=== PATIENT | female | born 1955 | race Two or more races ===

== ENCOUNTER 2024-09-03 12:19 | Inpatient (IN) | payer BC, OTHER ==
[2024-09-03] VITALS (7 sets, daily range): BP systolic 125–142; BP diastolic 66–83; PULSE 59–85; RESP 12–18; TEMP 97.3–99; O2SAT 97–98
[~2024-09-03] VITALS: Ht 165.1 cm; Wt 74.1 kg
[~2024-09-03 12:19] MED LIST: ALEN70TA74 PO; FLUT1AER3 INH; LEVO100T8 PO
[2024-09-03] MEDS ORDERED: NITROGLYCERIN 0.4 MG SL TAB SL PRN (12:30)
--- NOTE | 2024-09-03 12:33 | ED.PDOC ---
HPI Comments 69 year old female presents to the ED via EMS with a chief complaint of STEMI onset today (09/03/24). Per EMS, patient went to urgent care due to bilateral arm pain, jaw pain, generalized weakness. Urgent care shay rossi EKG, was abnormal, 911 was called. Upon EMS arrival, EKG read STEMI for them, gave patient Aspirin in route. Upon ED arrival, EKG was repeated, code Stemi was activated. Denies any PMHx as well as chest pain, nausea, vomiting, diarrhea, headache, dizziness, shortness of breath, fever, chills. No other symptoms or modifying factors present at this time. Chief Complaint: STEMI Time Seen by MD: 12:20 Reviewed Notes: Medications, Allergies Allergies: Coded Allergies: NO KNOWN ALLERGIES (Unverified , 09/03/24) Information Source: Patient, Emergency Med Personnel Mode of Arrival: EMS Severity: Moderate Timing: Hours Duration: Since onset Prehospital treatment: 12 Lead EKG, Other (aspirin) Radiation: Jaw, Arm (R), Arm (L) Onset: At Rest Past Medical History PAST MEDICAL HISTORY: Denies Surgical History: Denies all surgeries SLOTS MANAGER History: No Pertinent SLOTS MANAGER History Family History Family History: Reviewed,noncontributory to illness, No family hx of Cancer, No family hx of DM, No family hx of Heart janet, No family hx of HTN, No family hx ofKidney janet, No family hx of Liver janet, No family hx of Lung janet, No family hx of Stroke Social History Smoker: Non-Smoker Alcohol: Denies ETOH Use Drugs: Denies Drug Use Lives In: Home Constitutional: reports: weakness; denies: chills, diaphoresis, fatigue, fever, malaise, sweats, others EENTM: denies: blurred vision, double vision, ear bleeding, ear discharge, ear drainage, ear pain, ear ringing, eye pain, eye redness, hearing loss, mouth pain, mouth swelling, nasal discharge, nose bleeding, nose congestion, nose pain, photophobia, tearing, throat pain, throat swelling, voice changes, others Respiratory: denies: cough, hemoptysis, orthopnea, SOB at rest, shortness of breath, SOB with excertion, stridor, wheezing, others Cardiovascular: denies: chest pain, dizzy spells, diaphoresis, Dyspnea on exertion, edema, irregular heart beat, left arm pain, lightheadedness, palpitations, PND, syncope, others Gastrointestinal: denies: abdomen distended, abdominal pain, blood streaked bowels, constipated, diarrhea, dysphagia, difficulty swallowing, hematemesis, melena, nausea, poor appetite, poor fluid intake, rectal bleeding, rectal pain, vomiting, others Genitourinary: denies: abnormal vagina bleeding, burning, dyspareunia, dysuria, flank pain, frequency, hematuria, incontinence, pain, , vagina discharge, urgency, others Neurological: reports: weakness; denies: dizziness, fainting, headache, left sided numbness, left sided weakness, numbness, paresthesia, pre-existing deficit, right sided numbness, right sided weakness, seizure, speech problems, tingling, tremors, others Musculoskeletal: reports: others (bilateral arm pain, jaw pain); denies: back pain, gout, joint pain, joint swelling, muscle pain, muscle stiffness, neck pain Integumetry: denies: bruises, change in color, change in hair/nails, dryness, laceration, lesions, lumps, rash, wounds, others Allergic/Immunocompromised: denies: Difficulty Healing, Frequent Infections, Hives, Itching, others Hematologic/Lymphatic: denies: anemia, blood clots, easy bleeding, easy bruising, swollen glands, others Endocrine: denies: excessive hunger, excessive sweating, excessive thirst, excessive urination, flushing, intolerance to cold, intolerance to heat, unexplained weight gain, unexplained weight loss, others Psychiatric: denies: anxiety, bipolar disorder, depression, hopeless, panic disorder, schizophrenia, sleepless, suicidal, others All Other Systems: Reviewed and Negative Physical Exam General Appearance: Moderate Distress, Normal HEENT: Normal ENT Inspection, Pharynx Normal, TMs Normal Neck: Full Range of Motion, Non-Tender, Normal, Normal Inspection Respiratory: Chest Non-Tender, Lungs Clear, No Accessory Muscle Use, No Respiratory Distress, Normal Breath Sounds Cardiovascular: No Edema, No JVD, No Murmur, No Gallop, Normal Peripheral Pulses, Regular Rate/Rhythm Breast Exam: Deferred Gastrointestinal: No Organomegaly, Non Tender, No Pulsatile Mass, Normal Bowel Sounds, Soft Genitalia: Deferred Pelvic: Deferred Rectal: Deferred Extremities: No calf tenderness, Normal capillary refill, Normal inspection, Normal range of motion, Non-tender, No pedal edema Musculoskeletal : Apperance: Normal Neurologic: Alert, cable stretcher and tester II-XII nml as Tested, No Motor Deficits, Normal Affect, Normal Mood, No Sensory Deficits Cerebellar Function: NOT DONE Reflexes: NOT DONE Skin: Dry, Normal Color, Warm Peripheral Pulses: 3+ Radial (R), 3+ Radial (L) Lymphatic: No Adenopathy EKG EKG : ST: Inf Was a procedure done? Was a procedure done?: No CP Differential Dx Differential Diagnosis: A-fib, A-Flutter, Angina, Anxiety / Panic Attack, Atrial Dysrhythmia, Electrolyte Disorder X-Ray, Labs, Meds, VS Vital Signs Date Time Temp Pulse Resp B/P (MAP) Pulse Ox O2 Delivery O2 Flow Rate FiO2 09/03/24 12:58 56 09/03/24 12:51 132/60 09/03/24 12:36 59 18 98 Room Air* 0 21 09/03/24 12:34 59 18 104/63 (77) 09/03/24 12:22 61 09/03/24 12:19 98.6 61 19 182/134 (150) 96 98.6 Lab Test 09/03/24 12:32 Range/Units White Blood Count 6.7 4.4-10.8 10^3/uL Red Blood Count 4.29 4.0-5.20 10^6/uL Hemoglobin 13.3 12.2-16.2 g/dL Hematocrit 39.2 36.0-46.0 % Mean Corpuscular Volume 91.4 80.0-100.0 fL Mean Corpuscular Hemoglobin 30.9 28.0-32.0 pg Mean Corpuscular Hemoglobin Concent 33.8 32.0-36.0 g/dL Red Cell Distribution Width 13.9 11.8-14.3 % Platelet Count 210 140-450 10^3/uL Mean Platelet Volume 9.2 6.9-10.8 fL Neutrophils (%) (Auto) 53.6 37.0-80.0 % Lymphocytes (%) (Auto) 33.9 10.0-50.0 % Monocytes (%) (Auto) 8.7 0.0-12.0 % Eosinophils (%) (Auto) 2.7 0.0-7.0 % Basophils (%) (Auto) 1.1 0.0-2.0 % Neutrophils # (Auto) 3.6 1.6-8.6 10 ^3/uL Lymphocytes # (Auto) 2.3 0.4-5.4 10 ^3/uL Monocytes # (Auto) 0.6 0-1.3 10 ^3/uL Eosinophils # (Auto) 0.2 0-0.8 10 ^3/uL Basophils # (Auto) 0.1 0-0.2 10 ^3/uL Nucleated Red Blood Cells 0.0 % Prothrombin Time 10.2 9.3-11.8 sec Prothrombin Time INR 0.96 0.9-1.15 Activated Partial Thromboplast Time 24.2 L 24.5-34.5 SEC Sodium Level 139 136-145 mmol/L Potassium Level 4.2 3.5-5.1 mmol/L Chloride Level 106 98-107 mmol/L Carbon Dioxide Level 22 20-31 mmol/L Anion Gap 11 5-15 Blood Urea Nitrogen 14 9-23 mg/dL Creatinine 0.91 0.550-1.02 mg/dL Glomerular Filtration Rate Calc 67 >90 mL/min BUN/Creatinine Ratio 15.4 10.0-20.0 Serum Glucose 110 H 74-106 mg/dL Hemoglobin A1c 5.2 <5.7 % A1C Calcium Level 10.0 8.7-10.4 mg/dL Magnesium Level 2.4 1.6-2.6 mg/dL Total Bilirubin 0.3 0.2-1.0 mg/dL Aspartate Amino Transferase (AST) 22 13-40 U/L Alanine Aminotransferase (ALT) 19 7-40 U/L Alkaline Phosphatase 59 46-116 U/L Troponin I High Sensitivity 6 </=34 ng/L B-Type Natriuretic Peptide 11.04 0-100 pg/mL Total Protein 6.5 5.7-8.2 g/dL Albumin 4.2 3.2-4.8 g/dL Triglycerides Level 135 < 150 mg/dL Cholesterol Level 214 H < 200 mg/dL LDL Cholesterol 137 H < 100 mg/dL HDL Cholesterol 59 40-59 mg/dL Thyroid Stimulating Hormone (TSH) 7.19 H 0.55-4.78 uIU/mL Current Medications Medications (Trade) Dose Ordered Sig/Zana Route Start Time Stop Time Status Last Admin Heparin Sodium (Porcine) 5,000 units ONCE ONCE IV 09/03/24 12:45 09/03/24 12:46 DC 09/03/24 12:51 Hydralazine HCl (Apresoline Injection) 10 mg Q6HP PRN IV 09/03/24 13:30 09/03/24 16:38 Patient alert. Came from urgent care because of generalized weakness. Arm pain. Blood pressure elevated pain EKG does show STEMI. Cardiology consulted. She she will be sent to cardiac cath technician. Was given heparin. Possibly right coronary artery. Explained to the patient. Continue monitoring. Time of 1ST Reevaluation: 12:50 Reevaluation 1ST: Unchanged Patient Education/Counseling: Diagnosis, Treatment, Prognosis Family Education/Counseling: No Family Present Departure 1 Departure Time of Disposition: 12:36 Impression: Primary Impression: STEMI (ST elevation myocardial infarction) Qualified Codes: I21.3 - ST elevation (STEMI) myocardial infarction of unspecified site Disposition: ADMITTED INPATIENT Admit to: ICU Condition: Guarded Critical Care Note Critical Care Time?: Yes (90 min-critical care time only) Critical care comment: STEMI Stability Stability form required: No Heart Score Heart Score: Heart Score Response (Comments) Value History Highly Suspicious [address]-Deviation 2 Age >65 2 Risk Factors 1 or 2 risk factors 1 Troponin N/A 0 Total 7 I personally scribed for TANG BATISTA MD ([email or web address]) on 09/03/24 at 12:33. Electronically submitted by Valery Mills ([email or web address]). TANG BATISTA MD September 03, 2024 12:33
[2024-09-03] MEDS: VERAPAMIL 2.5MG/ML INJ 2ML VIAL IV ONE (12:51)
[2024-09-03] MEDS: HEPARIN SODIUM (PORCINE) 5000 UNITS/ML 1ML VIAL ONE (12:51)
[2024-09-03] MEDS: MIDAZOLAM HCL 2MG/2ML 2ml VIAL (1mg/ml) ONE (12:51)
[2024-09-03] MEDS: fentaNYL CITRATE 100 MCG/2 ML VL ONE (12:51)
[2024-09-03] MEDS: HEPARIN SODIUM (PORCINE) 5000 UNITS/ML 1ML VIAL IV ONE (12:51)
[2024-09-03] MEDS: ANGIOMAX 250 MG VIAL IV ONE (12:51)
[2024-09-03] MEDS: IODIXANOL 320MG/ML 100ML BTL IV ONE (12:52)
[2024-09-03] MEDS: LIDOCAINE 2%HCL (LOCAL ANESTH.) INJ 20ML MDV ONE (12:52)
[2024-09-03] MEDS: SODIUM CHL 0.9% 50 ML ONE (12:52)
[2024-09-03] MEDS: HEPARIN 1,000 UNITS/ml 1ML VIAL IV ONE (12:54)
[2024-09-03 13:07] LABS: Basophils # (auto) 0.1 10 ^3/uL (0-0.2); Basophils % (auto) 1.1 % (0.0-2.0); Eosinophils # (auto) 0.2 10 ^3/uL (0-0.8); Eosinophils % (auto) 2.7 % (0.0-7.0); Hematocrit 39.2 % (36.0-46.0); Hemoglobin 13.3 g/dL (12.2-16.2); Lymphocytes # (auto) 2.3 10 ^3/uL (0.4-5.4); Lymphocytes % (auto) 33.9 % (10.0-50.0); Mean Corpuscular Hemoglobin 30.9 pg (28.0-32.0); Mean Corpuscular Hgb Conc. 33.8 g/dL (32.0-36.0); Mean Corpuscular Volume 91.4 fL (80.0-100.0); Monocytes # (auto) 0.6 10 ^3/uL (0-1.3); Monocytes % (auto) 8.7 % (0.0-12.0); Neutrophils # (auto) 3.6 10 ^3/uL (1.6-8.6); Neutrophils % (auto) 53.6 % (37.0-80.0); Platelet Count (auto) 210 10^3/uL (140-450); Red Blood Cells 4.29 10^6/uL (4.0-5.20); Red Cell Distribution Width 13.9 % (11.8-14.3); White Blood Cell 6.7 10^3/uL (4.4-10.8)
--- NOTE | 2024-09-03 13:14 | DVH ---
XY CHEST PORTABLE, HISTORY: STEMI /CP COMPARISON: None None TECHNICAL DATA: 1 view of the chest was obtained. FINDINGS: Lines and tubes: None Cardiomediastinal silhouette: normal Pulmonary vasculature: normal Lung expansion: normal Lung airspace: normal Lung interstitium: normal Pleura: normal Pneumothorax: no Bones: Unremarkable Other: no IMPRESSION: No acute intrathoracic abnormality.
--- NOTE | 2024-09-03 13:15 | DVHINCON2 ---
Date Seen: September 03, 2024 Referring Physician MD Hien Reason for Consultation STEMI History of Present Illness This is a pleasant 69-year-old female who presented to the emergency room via EMS with a chief complaint of generalized weakness. Per EMS, the patient presented to a local urgent care clinic with complaints of generalized weakness associated with dizziness, lightheadedness, jaw pain, and bilateral arm pain. She underwent a 12 lead electrocardiogram revealing inferior wall changes for which EMS was called. En route to the hospital she was loaded with ASA 324mg. She presented as an inferior wall STEMI alert. A subsequent 12 lead electrocardiogram was performed within the emergency room revealing an inferior wall STEMI confirmed by on-call production posting clerk, Dr. Pisano, for which code STEMI was activated. Lab work is pending at this time. Significant medical history includes thyroid disease, osteoporosis, and tobacco use including 27.5 pack- years. Past Medical History Past medical history reviewed. No other significant than mentioned above. Past Surgical History Hysterectomy Family History Family history reviewed. Father from massive NH at 67 y.o. Social History Denies the use of illicit drugs or alcohol. Admits to tobacco use, one pack every two days. Allergies: Coded Allergies: NO KNOWN ALLERGIES (Unverified , 09/03/24) Home Meds Home medications reviewed. Current Medications Current Medications Medications (Trade) Dose Ordered Sig/Zana Route PRN Reason Start Time Stop Time Status Last Admin Nitroglycerin (Ntrostat Sublingual) 0.4 mg Q5M PRN SL FOR CHEST PAIN 09/03/24 12:30 Review of Systems Constitutional: Generalized weakness Ears, Nose, & Throat: No symptom reported Eyes: No symptom reported Neurological: Lightheadedness Pulmonary/Respiratory: No symptom reported Cardiovascular: Jaw pain, bilateral arm pain Gastrointestinal: No symptom reported Genitourinary: No symptom reported Musculoskeletal: No symptom reported Skin: No symptom reported Psychiatric: No symptom reported Endocrine: No symptom reported Hemotologic/Lymphatic: No symptom reported Vital Signs Vital Signs Date Time Temp Pulse Resp B/P (MAP) Pulse Ox O2 Delivery O2 Flow Rate FiO2 09/03/24 12:58 56 09/03/24 12:36 18 98 Room Air* 0 21 09/03/24 12:34 104/63 (77) 09/03/24 12:19 98.6 98.6 Physical Exam General Appearance: Cooperative. Well developed. Well nourished. In no acute distress Head Exam: Normal inspection Neck Exam: Normal inspection. Non-tender. Normal alignment Pulmonary/Respiratory: Chest non-tender. Clear bilateral breath sounds Cardiovascular/Chest: Regular rate and rhythm. S1, S2. Acute inferior wall NH. No murmurs. No JVD. Peripheral Pulses: 2+ Radial (R). 2+ Radial (L). 2+ Pedal (R). 2+ Pedal (L) Abdominal Exam: Normal bowel sounds. Soft. Nontender. No hepatospenomegaly. No masses Ankle Exam: Negative ankle edema Lower extremities: Negative lower extremity edema Neuro/Mental Status: A&O x4. Coherent Thoughts/Psych: Normal thought pattern. Appropriate mood and affect. Good judgement and insight Appearance: In no acute distress Skin Exam: Normal inspection. Normal color. Warm. Dry Labs/Diagnostic Data Labs Test 09/03/24 12:32 Range/Units White Blood Count 6.7 4.4-10.8 10^3/uL Red Blood Count 4.29 4.0-5.20 10^6/uL Hemoglobin 13.3 12.2-16.2 g/dL Hematocrit 39.2 36.0-46.0 % Mean Corpuscular Volume 91.4 80.0-100.0 fL Mean Corpuscular Hemoglobin 30.9 28.0-32.0 pg Mean Corpuscular Hemoglobin Concent 33.8 32.0-36.0 g/dL Red Cell Distribution Width 13.9 11.8-14.3 % Platelet Count 210 140-450 10^3/uL Mean Platelet Volume 9.2 6.9-10.8 fL Neutrophils (%) (Auto) 53.6 37.0-80.0 % Lymphocytes (%) (Auto) 33.9 10.0-50.0 % Monocytes (%) (Auto) 8.7 0.0-12.0 % Eosinophils (%) (Auto) 2.7 0.0-7.0 % Basophils (%) (Auto) 1.1 0.0-2.0 % Neutrophils # (Auto) 3.6 1.6-8.6 10 ^3/uL Lymphocytes # (Auto) 2.3 0.4-5.4 10 ^3/uL Monocytes # (Auto) 0.6 0-1.3 10 ^3/uL Eosinophils # (Auto) 0.2 0-0.8 10 ^3/uL Basophils # (Auto) 0.1 0-0.2 10 ^3/uL Nucleated Red Blood Cells 0.0 % Assessment Acute inferior wall myocardial infarction Rule out structural heart disease Pertinent family history for cardiovascular disease Thyroid disease Nicotine dependence Osteoporosis Plan/Recommendation (Dr. Pisano) Code STEMI activated by Dr. Pisano. The patient has been scheduled for emergent cardiac catheterization and coronary angiogram. All risks and benefits of the procedure were discussed in full detail. The patient agreed to proceed with intervention. She was loaded on ASA 324 mg and heparin 5,000 units IV. We will continue further cardiac evaluation with a transthoracic echocardiogram to rule out structural heart disease. Rest of plan per clinical course. Thank you for allowing us to participate in this patient's care. Please call if you have any questions or concerns. Critical care: 45 min. This medical document was created using an electronic medical record system with voice recognition software and computerized dictation system. Although this document has been carefully reviewed, there might still be some phonetic and typographical errors. Occasional wrong-word or ``sound- alike substitutions may have occurred due to the inherent limitations of voice recognition software. These areas are purely typographical due to imperfections of the software programs and do not reflect any compromise in the patient's medical care. Please read the chart carefully and recognize, using context, where these substitutions have occurred. Plan discussed with: Patient, Other NYHA Physical activity limitations: NA Date of Service: September 03, 2024 Billing Provider: ERIC MOORE Cardiology Common Codes: NOT BILLABLE ERIC MOORE September 03, 2024 13:15
[2024-09-03 13:19] LABS: INR 0.96 (0.9-1.15); Partial Thromboplastin Time 24.2 SEC (24.5-34.5); Prothrombin Time 10.2 sec (9.3-11.8)
[2024-09-03 13:26] LABS: Alanine Aminotransferase 19 U/L (7-40); Albumin 4.2 g/dL (3.2-4.8); Alkaline Phosphatase 59 U/L (46-116); Anion Gap 11 (5-15); Aspartate Aminotransferase 22 U/L (13-40); BUN/Creatinine Ratio 15.4 (10.0-20.0); Blood Urea Nitrogen 14 mg/dL (9-23); Carbon Dioxide 22 mmol/L (20-31); Chloride 106 mmol/L (98-107); Magnesium 2.4 mg/dL (1.6-2.6); Potassium 4.2 mmol/L (3.5-5.1); Sodium 139 mmol/L (136-145); Total Protein 6.5 g/dL (5.7-8.2); Triglycerides 135 mg/dL (< 150)
[2024-09-03] MEDS: ATROPINE SULF 1 MG/10ml SYR ONE (13:26)
[2024-09-03] MEDS: EPINEPHrine HCL 1 MG/10 ML SYRG ONE (13:26)
[2024-09-03 13:27] LABS: Bilirubin, Total 0.3 mg/dL (0.2-1.0); Cholesterol 214 mg/dL (< 200); Glucose 110 mg/dL (74-106); HDL Cholesterol 59 mg/dL (40-59); LDL Cholesterol 137 mg/dL (< 100)
[2024-09-03] MEDS ORDERED: MORPHINE SULFATE INJ 2 MG/ml SYRG IV PRN (13:30)
[2024-09-03] MEDS: ASPirin 81 mg TAB ONE (13:49)
[2024-09-03] MEDS: TICAGRELOR 90 MG TAB ONE (13:49)
--- NOTE | 2024-09-03 14:39 | DVHOP2 ---
Operative Report Procedures performed: Left heart catheterization and bilateral coronary angiogram PCI of RCA (mid RCA) Moderate sedation Diagnosis: STEMI, inferior wall Coronary artery disease, double-vessel Status post PCIs/drug-eluting stent deployment of mid RCA Mid LAD with 90% lesion LVEF of 55% with LVEDP of 21 mm Hg Cardiac suggestion for management: Manage on telemetry Dual antiplatelet therapy (loaded with aspirin/Brilinta) for at least one year Staged PCI of LAD High potency statin Beta-sergio/JESU inhibitor versus ARB Echocardiogram Optimized medical therapy Lifestyle and risk factor modifications, patient was counseled to quit smoking Findings: LVEF: 55% LVEDP: 21 mm Hg There was no transaortic valve pressure gradient Left main: Left main was coming off the left sinus of Valsalva. It was free of disease. LAD: LAD was coming off the left main. It provided medium-sized diagonal. Mid LAD had up to 90% lesion at the takeoff side of the diagonal which itself at 90% ostial/proximal disease LCX: LCX was coming off the left main. It is free of disease. RCA: RCA was coming off the right sinus of Valsalva. It was the dominant vessel and provided large caliber RPDA/RPLS. There was a 99% lesion in mid RCA which was considered the culprit. DEBRA flow into distal RCA and branches was DEBRA two flow. Presentation: Patient is a 69-year-old female with past history of hypothyroidism and active cigarette smoking who presented to the hospital for jaw/left arm pain. Discomfort started the day before presentation and worsened on the day of presentation. Reportedly, EMS found the patient with inferior wall STEMI and the patient was brought to the hospital with STEMI code. EKG at the hospital revealed inferior wall STEMI. EMS had given the patient 324 mg of aspirin.. In emergency room, the patient was given 5000 units of heparin. Patient was sent for emergent cardiac catheterization. Procedure: After obtaining informed consent, the patient was brought to the analytical laboratory technician. She was prepped and draped in sterile fashion. 25 mcg of fentanyl and 1 mg of Versed were used for moderate sedation. Right radial artery was used for access site. Using modified Seldinger technique, the right radial artery was accessed and a 6 Liberian slender sheath was inserted into it. 2.5 mg of verapamil and 100 mcg of nitroglycerin were given as a cocktail into the radial sheath. A 3.5 Ikari left guiding catheter was used to access the right coronary system. We did recognize the significant disease in mid RCA which was the culprit. Decision was made to proceed with intervention. Patient was started on Angiomax. A run-through wire was used to cross the lesion of the mid RCA. A 2.5x12 compliant balloon was used for predilatation. DEBRA flow became DEBRA 3 flow and the patient's pain decreased significantly. We decided to proceed with deploying a stent. A 2.5 x 15 drug-eluting stent was deployed across the lesion in mid RCA (inflated to 18 atmosphere which practically making it 2.75 in size). Repeat angiography revealed significant step-up in proximal lesion. Decision was made to proceed with deploying another stent. A 2.5 x 8 drug-eluting stent was deployed across the proximal edge of the stent (inflated to 18 atmosphere, practically making it 2.75 in size). Repeat angiography revealed well deployed stents. Remaining disease was 0%. DEBRA flow into distal sections of RCA became DEBRA 3 flow (after intervention). A 6 Liberian pigtail was used to perform left heart catheterization (obtaining pressures and performing left ventriculography). A 6 Liberian 3.5 JL diagnostic catheter was used to perform left coronary angiography. We did recognize the significant disease in mid LAD and diagonal. We recognized that the management of the LAD lesion may result in closure of the diagonal. As the patient had presented with acute inferior STEMI (RCA disease), decision was made to manage these separate lesions in a staged setting. After intervention (PCI of RCA), the patient's pain completely had resolved. Patient was remaining hemodynamically stable. Total bleeding was less than 5 mL. There was no dissection/hematoma/perforation. Patient tolerated the procedure with no complication. Right radial artery access site was managed by deploying a TR band. Fluoroscopy time: 8.6 minutes contrast: 90 mL of COSMO Kinney MD September 03, 2024 14:39
--- NOTE | 2024-09-03 15:08 | DVHHP2 ---
History of Present Illness Reason for Visit: Code STEMI History of Present Illness 69-year-old female with a known history of hypothyroidism, osteoporosis, chronic tobacco use disorder initially presented to the urgent care with generalized weakness jaw pain and went bilateral upper extremity pain. Patient was found to have STEMI eventually was sent to ER. Code STEMI was called patient was urgently taken to supervisor dental laboratory, underwent left heart catheterization with bilateral coronary angiogram with a status post PCI to mid RCA stent with two drug-eluting stents, patient needs PCI to LAD/marginal at a later date. Patient is currently denies any chest pain shortness of breath. Musculoskeletal: Other (Osteoporosis.) Endocrine: Hypothyroidism Past Surgical History: None Family History: None Smoke: <1 pack per day ALCOHOL: none Drugs: None Review of Systems Review of Systems Twelve review of system are negative besides mentioned above. Allergies: Coded Allergies: NO KNOWN ALLERGIES (Unverified , 09/03/24) Medications Current Medications Medications Dose Ordered Sig/Zana Route Start Time Stop Time Status Last Admin Dose Admin Morphine Sulfate 2 mg Q30M PRN IV 09/03/24 13:30 Aspirin 81 mg DAILY PO 09/04/24 10:00 Atorvastatin Calcium 80 mg HS PO 09/03/24 22:00 Hydralazine HCl 10 mg Q6HP PRN IV 09/03/24 13:30 Acetaminophen 325 mg Q4HP PRN PO 09/03/24 13:45 Levothyroxine Sodium 100 mcg QAM@0600 PO 09/04/24 06:00 Ticagrelor 90 mg BID PO 09/03/24 22:00 Metoprolol Tartrate 12.5 mg BID PO 09/03/24 22:00 Enalapril Maleate 5 mg DAILY PO 09/04/24 10:00 Exam Vital Signs Vital Signs Date Time Temp Pulse Resp B/P (MAP) Pulse Ox O2 Delivery O2 Flow Rate FiO2 09/03/24 14:35 63 12 131/66 (87) 97 09/03/24 14:05 97.3 97.3 09/03/24 12:36 Room Air* 0 21 Exam HEENT pupils are reactive Neck is supple CV is S1-S2 regular rate and rhythm Respiratory are clear GI positive bowel sound Extremity no edema CASH APPLICATION CLERK no motor deficit Labs/Xrays Labs Test 09/03/24 12:32 Range/Units White Blood Count 6.7 4.4-10.8 10^3/uL Red Blood Count 4.29 4.0-5.20 10^6/uL Hemoglobin 13.3 12.2-16.2 g/dL Hematocrit 39.2 36.0-46.0 % Mean Corpuscular Volume 91.4 80.0-100.0 fL Mean Corpuscular Hemoglobin 30.9 28.0-32.0 pg Mean Corpuscular Hemoglobin Concent 33.8 32.0-36.0 g/dL Red Cell Distribution Width 13.9 11.8-14.3 % Platelet Count 210 140-450 10^3/uL Mean Platelet Volume 9.2 6.9-10.8 fL Neutrophils (%) (Auto) 53.6 37.0-80.0 % Lymphocytes (%) (Auto) 33.9 10.0-50.0 % Monocytes (%) (Auto) 8.7 0.0-12.0 % Eosinophils (%) (Auto) 2.7 0.0-7.0 % Basophils (%) (Auto) 1.1 0.0-2.0 % Neutrophils # (Auto) 3.6 1.6-8.6 10 ^3/uL Lymphocytes # (Auto) 2.3 0.4-5.4 10 ^3/uL Monocytes # (Auto) 0.6 0-1.3 10 ^3/uL Eosinophils # (Auto) 0.2 0-0.8 10 ^3/uL Basophils # (Auto) 0.1 0-0.2 10 ^3/uL Nucleated Red Blood Cells 0.0 % Prothrombin Time 10.2 9.3-11.8 sec Prothrombin Time INR 0.96 0.9-1.15 Activated Partial Thromboplast Time 24.2 L 24.5-34.5 SEC Sodium Level 139 136-145 mmol/L Potassium Level 4.2 3.5-5.1 mmol/L Chloride Level 106 98-107 mmol/L Carbon Dioxide Level 22 20-31 mmol/L Anion Gap 11 5-15 Blood Urea Nitrogen 14 9-23 mg/dL Creatinine 0.91 0.550-1.02 mg/dL Glomerular Filtration Rate Calc 67 >90 mL/min BUN/Creatinine Ratio 15.4 10.0-20.0 Serum Glucose 110 H 74-106 mg/dL Calcium Level 10.0 8.7-10.4 mg/dL Magnesium Level 2.4 1.6-2.6 mg/dL Total Bilirubin 0.3 0.2-1.0 mg/dL Aspartate Amino Transferase (AST) 22 13-40 U/L Alanine Aminotransferase (ALT) 19 7-40 U/L Alkaline Phosphatase 59 46-116 U/L Troponin I High Sensitivity 6 </=34 ng/L B-Type Natriuretic Peptide 11.04 0-100 pg/mL Total Protein 6.5 5.7-8.2 g/dL Albumin 4.2 3.2-4.8 g/dL Triglycerides Level 135 < 150 mg/dL Cholesterol Level 214 H < 200 mg/dL LDL Cholesterol 137 H < 100 mg/dL HDL Cholesterol 59 40-59 mg/dL Thyroid Stimulating Hormone (TSH) 7.19 H 0.55-4.78 uIU/mL Assessment/Plan Assessment/Plan 69-year-old female with a known history of hypothyroidism, osteoporosis, chronic tobacco use disorder presented to the hospital with bilateral upper extremity numbness pain as well as jaw pain found to have 1. STEMI status post left heart catheterization with a PCI to mid RCA with two stents 2. LAD lesion need PCI to marginal. 3. Hypothyroidism 4. Osteoporosis 5. Chronic tobacco use disorder -aspirin, Brilinta, statin, beta sergio -follow up Cardiology recommendations. Plan discussed with: Patient Date of Service: September 03, 2024 Billing Provider: MIYA ARELLANO MD Common Visit Codes: NOT BILLABLE MIYA ARELLANO MD September 03, 2024 15:08
[2024-09-03] MEDS: SODIUM CHLORIDE 0.9% 1,000 ML IV SCH (15:50)
[2024-09-03] MEDS: ACETAMINOPHEN 325 MG TAB PO PRN (16:37)
[2024-09-03] MEDS: hydrALAZINE HCL 20 MG/ML VL IV PRN (16:38)
--- NOTE | 2024-09-03 17:13 | DVHSR ---
APPROVED REPORT EXAM: Two-dimensional and M-mode echocardiogram with Doppler and color Doppler. Blood Pressure: 104/63 mmHg INDICATION STEMI RISK FACTORS Height: 5'5", Weight: 150 DIMENSIONS LVDd4.5 (3.8-5.7cm)LA (2D)3.5 (1.9-4.0cm)Aortic Root3.0 (2.0-3.7cm) LVDs3.2 (2.5-4.0cm)LA (MM) (1.9-4.0cm)Aortic Cusp Exc1.4 (1.5-2.0cm) EF (%) 56.0 (55-70%)Rt. Atrium3.7 (1.9-4.0cm)Asc. Aorta cm IVSd0.9 (0.7-1.1cm)RV (D)3.5 (1.8-2.4cm) PWd0.6 (0.7-1.1cm) Mitral Valve MitralMitral Stenosis E wave0.74m/sMV Mean GR.mmHg A wave0.86m/sMV Peak GR.mmHg E/A ratio0.92D MVAcm2 DECEL [id number] 1/2 [place] Aortic Valve Aortic ValveAortic Stenosis V10.79m/Yi Mean GR.5mmHg V21.34m/Yi Peak GR.7mmHg LVOT Diameter2.1 (1.8-2.4cm)Doppler AVA2.04cm2 Pulmonic Valve V20.73m/s Tricuspid Valve TR Velocity2.17m/s [id number] Conclusion Left ventricle: Left ventricle is normal sized with normal systolic function. The LVEF was 55-60%. There was no gross wall motion abnormality. Right ventricle was normal sized with normal systolic function. Both atria were normal sized. Aortic valve: Aortic valve was trileaflet there was no aortic stenosis. There was trivial aortic ins ufficiency. There was trace mitral regurgitation. There was mild tricuspid regurgitation. There wa s trace pulmonary valve insufficiency. Right ventricular systolic pressure was assessed at 23 mm Hg (normal). There was no pericardial effu aaron.
[2024-09-03] MEDS: TICAGRELOR 90 MG TAB PO SCH (21:45)
[2024-09-03] MEDS: ATORVASTATIN 20 MG TAB PO SCH (21:49)
[2024-09-03] MEDS: METOPROLOL TARTRATE 25 MG TAB PO SCH (21:49)
[2024-09-03] MEDS ORDERED: TOPI100T68 PO (21:55)
[2024-09-03] MEDS ORDERED: NITR-52 PO (21:55)
[2024-09-03] MEDS ORDERED: VENL75CA3 PO (21:55)
[2024-09-03] MEDS ORDERED: TRAZ1TAB12 PO (21:55)
[2024-09-04] VITALS (8 sets, daily range): BP systolic 101–152; BP diastolic 64–83; PULSE 60–74; RESP 14–18; TEMP 97.2–98.9; O2SAT 97–99
[2024-09-04 06:11] LABS: Basophils # (auto) 0 10 ^3/uL (0-0.2); Basophils % (auto) 0.5 % (0.0-2.0); Eosinophils # (auto) 0.1 10 ^3/uL (0-0.8); Eosinophils % (auto) 1.2 % (0.0-7.0); Hematocrit 37.5 % (36.0-46.0); Hemoglobin 12.7 g/dL (12.2-16.2); Lymphocytes # (auto) 0.9 10 ^3/uL (0.4-5.4); Lymphocytes % (auto) 11.3 % (10.0-50.0); Mean Corpuscular Hemoglobin 30.9 pg (28.0-32.0); Mean Corpuscular Hgb Conc. 33.9 g/dL (32.0-36.0); Mean Corpuscular Volume 91.1 fL (80.0-100.0); Monocytes # (auto) 0.7 10 ^3/uL (0-1.3); Monocytes % (auto) 8.5 % (0.0-12.0); Neutrophils # (auto) 6.5 10 ^3/uL (1.6-8.6); Neutrophils % (auto) 78.5 % (37.0-80.0); Nucleated Red Blood Cells % 0.1 %; Platelet Count (auto) 187 10^3/uL (140-450); Red Blood Cells 4.12 10^6/uL (4.0-5.20); Red Cell Distribution Width 13.9 % (11.8-14.3); White Blood Cell 8.3 10^3/uL (4.4-10.8)
[2024-09-04 06:39] LABS: Alanine Aminotransferase 18 U/L (7-40); Alkaline Phosphatase 51 U/L (46-116); Anion Gap 10 (5-15); Aspartate Aminotransferase 30 U/L (13-40); BUN/Creatinine Ratio 15.7 (10.0-20.0); Bilirubin, Total 0.5 mg/dL (0.2-1.0); Blood Urea Nitrogen 11 mg/dL (9-23); Calcium 8.7 mg/dL (8.7-10.4); Glucose 92 mg/dL (74-106); Potassium 3.9 mmol/L (3.5-5.1); Sodium 139 mmol/L (136-145); Total Protein 6.4 g/dL (5.7-8.2)
[2024-09-04 06:42] LABS: Carbon Dioxide 19 mmol/L (20-31); Chloride 110 mmol/L (98-107)
[2024-09-04] MEDS: LEVOTHYROXINE SODIUM 100 MCG TAB PO SCH (06:42)
--- NOTE | 2024-09-04 07:16 | DVH ---
EXAM: XR Chest, 1 View CLINICAL INDICATION: STEMI TECHNIQUE: Frontal view of the chest. COMPARISON: XY CHEST PORTABLE on DOS: 09/03/24 FINDINGS: LUNGS AND PLEURAL SPACES: Unremarkable. No consolidation. No pneumothorax. HEART: Unremarkable. No cardiomegaly. MEDIASTINUM: Unremarkable. Normal mediastinal contour. BONES/JOINTS: Unremarkable. No acute fracture. OTHER FINDINGS: . IMPRESSION: No acute cardiopulmonary process.
[2024-09-04] MEDS: ASPirin 81 mg TAB PO SCH (09:17)
[2024-09-04] MEDS: ENALAPRIL MALEATE 2.5 MG TAB PO SCH (09:17)
[2024-09-04] MEDS ORDERED: CLOPIDOGREL BISULFATE 75 MG TAB PO SCH (10:00)
--- NOTE | 2024-09-04 11:28 | DVHPN2 ---
Consult Progress Note Date Seen: September 04, 2024 Subjective Review of Systems: CVS:Normal, RESPIRATORY:Normal, NEURO:Normal Objective vital signs Vital Sign Date Time Temp Pulse Resp B/P (MAP) Pulse Ox O2 Delivery O2 Flow Rate FiO2 09/04/24 10:16 55 142/75 09/04/24 08:30 97.9 14 99 97.9 09/04/24 08:00 Room Air* 0 21 Total Intake and Output 09/03/24 09/03/24 09/04/24 15:00 23:00 07:00 Intake Total 480 ml 800 ml Balance 480 ml 800 ml medications Current Medications Medications Dose Ordered Sig/Zana Route Start Time Stop Time Status Last Admin Dose Admin Morphine Sulfate 2 mg Q30M PRN IV 09/03/24 13:30 Aspirin 81 mg DAILY PO 09/04/24 10:00 09/04/24 09:17 81 MG Atorvastatin Calcium 80 mg HS PO 09/03/24 22:00 Hydralazine HCl 10 mg Q6HP PRN IV 09/03/24 13:30 09/03/24 16:38 10 MG Acetaminophen 325 mg Q4HP PRN PO 09/03/24 13:45 09/03/24 16:37 325 MG Levothyroxine Sodium 100 mcg QAM@0600 PO 09/04/24 06:00 09/04/24 06:42 100 MCG Ticagrelor 90 mg BID PO 09/03/24 22:00 09/04/24 09:16 90 MG Metoprolol Tartrate 12.5 mg BID PO 09/03/24 22:00 09/04/24 09:16 12.5 MG Enalapril Maleate 5 mg DAILY PO 09/04/24 10:00 09/04/24 09:17 5 MG Sodium Chloride 1,000 ml @ 60 mls/hr [id number] IV 09/03/24 15:30 09/04/24 09:18 60 MLS/HR Examination: LUNGS:Normal, CVS:Normal, NEURO:Normal laboratory and microbiology Laboratory Tests 09/04/24 05:10 Test 09/04/24 05:10 Range/Units Serum Glucose 92 74-106 mg/dL Problem List/Assessment/Plan Problem List/Assessment/Plan Acute inferior wall myocardial infarction status post PCI and stenting of the RCA x 2DES 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 Pisano) Status post emergent PCI and stenting of the mid RCA x 2 LIYAH. Pending stage procedure of the mid LAD and diagonal branch with ostial/proximal disease. Transthoracic echocardiogram revealed LVEF 55-60% with no gross wall motion abnormalities. Continue antiplatelet therapy with Brilinta and lipid lowering agent. Continue low-dose metoprolol and enalapril therapy for blood pressure control. Rest of plan per clinical course. Thank you for allowing us to participate in this patient's care. Please call if you have any questions or concerns. This medical document was created using an electronic medical record system with voice recognition software and computerized dictation system. Although this document has been carefully reviewed, there might still be some phonetic and typographical errors. Occasional wrong-word or ``sound-alike substitutions may have occurred due to the inherent limitations of voice recognition software. These areas are purely typographical due to imperfections of the software programs and do not reflect any compromise in the patient's medical care. Please read the chart carefully and recognize, using context, where these substitutions have occurred. Plan discussed with: Patient, Other Date of Service: September 04, 2024 Billing Provider: ERIC MOORE Cardiology Common Codes: [id number] [facility](High ERIC MOORE September 04, 2024 11:28
--- NOTE | 2024-09-04 13:46 | DVHPN2 ---
Subjective Patient denies any chest pain or shortness of breath. Changes from previous H/P or p: No Changes Objective Vitals Vital Signs Date Time Temp Pulse Resp B/P (MAP) Pulse Ox O2 Delivery O2 Flow Rate FiO2 09/04/24 10:16 55 142/75 09/04/24 08:30 97.9 14 99 97.9 09/04/24 08:00 Room Air* 0 21 Intake/Output Intake and Output 09/04/24 07:00 Intake Total 1280 ml Balance 1280 ml Intake Oral 1100 ml IV Total 180 ml # Voids 5 # Bowel Movements 1 Medications Current Medications Medications Dose Ordered Sig/Zana Route Start Time Stop Time Status Last Admin Dose Admin Morphine Sulfate 2 mg Q30M PRN IV 09/03/24 13:30 Aspirin 81 mg DAILY PO 09/04/24 10:00 09/04/24 09:17 81 MG Atorvastatin Calcium 80 mg HS PO 09/03/24 22:00 Hydralazine HCl 10 mg Q6HP PRN IV 09/03/24 13:30 09/03/24 16:38 10 MG Acetaminophen 325 mg Q4HP PRN PO 09/03/24 13:45 09/03/24 16:37 325 MG Levothyroxine Sodium 100 mcg QAM@0600 PO 09/04/24 06:00 09/04/24 06:42 100 MCG Ticagrelor 90 mg BID PO 09/03/24 22:00 09/04/24 09:16 90 MG Metoprolol Tartrate 12.5 mg BID PO 09/03/24 22:00 09/04/24 09:16 12.5 MG Sodium Chloride 1,000 ml @ 60 mls/hr [id number] IV 09/03/24 15:30 09/04/24 09:18 60 MLS/HR Enalapril Maleate 20 mg DAILY PO 09/05/24 10:00 Laboratory Results Laboratory Tests 09/04/24 05:10 Chemistry Test 09/04/24 05:10 Albumin 4.0 g/dL (3.2-4.8) Calcium Level 8.7 mg/dL (8.7-10.4) Total Protein 6.4 g/dL (5.7-8.2) LFT Test 09/04/24 05:10 Alanine Aminotransferase (ALT) 18 U/L (7-40) Alkaline Phosphatase 51 U/L (46-116) Aspartate Amino Transferase (AST) 30 U/L (13-40) Total Bilirubin 0.5 mg/dL (0.2-1.0) Assessment/Plan Assessment/Plan 69-year-old female with a known history of hypothyroidism, osteoporosis, chronic tobacco use disorder presented to the hospital with bilateral upper extremity numbness pain as well as jaw pain found to have 1. STEMI status post left heart catheterization with a PCI to mid RCA with two stents 2. LAD lesion need PCI to diagonal. 3. Hypothyroidism 4. Osteoporosis 5. Chronic tobacco use disorder -aspirin, Brilinta, statin, beta sergio -follow up Cardiology recommendations. Plan discussed with: Patient Date of Service: September 04, 2024 Billing Provider: MIYA ARELLANO MD Common Visit Codes: NOT BILLABLE MIYA ARELLANO MD September 04, 2024 13:46
[2024-09-05] VITALS (9 sets, daily range): BP systolic 97–137; BP diastolic 48–78; PULSE 56–71; RESP 14–18; TEMP 97.4–98.6; O2SAT 96–99
[2024-09-05] MEDS: ENALAPRIL MALEATE 10 MG TAB PO SCH (09:53)
[2024-09-05] MEDS ORDERED: ENALAPRIL MALEATE 2.5 MG TAB PO SCH (10:00)
[2024-09-05] MEDS: fentaNYL CITRATE 100 MCG/2 ML VL ONE ×2 (15:27→16:52)
[2024-09-05] MEDS: VERAPAMIL 2.5MG/ML INJ 2ML VIAL IV ONE ×2 (15:27→16:52)
[2024-09-05] MEDS: ANGIOMAX 250 MG VIAL IV ONE ×2 (15:27→16:52)
[2024-09-05] MEDS: MIDAZOLAM HCL 2MG/2ML 2ml VIAL (1mg/ml) ONE ×2 (15:28→16:53)
[2024-09-05] MEDS: SODIUM CHL 0.9% 50 ML ONE ×2 (15:28→16:53)
[2024-09-05] MEDS: LIDOCAINE 2%HCL (LOCAL ANESTH.) INJ 20ML MDV ONE ×2 (15:28→16:53)
[2024-09-05] MEDS: IODIXANOL 320MG/ML 100ML BTL IV ONE ×2 (15:28→16:53)
--- NOTE | 2024-09-05 16:14 | DVHPN2 ---
Subjective Patient denies any chest pain or shortness of breath. Changes from previous H/P or p: No Changes Objective Vitals Vital Signs Date Time Temp Pulse Resp B/P (MAP) Pulse Ox O2 Delivery O2 Flow Rate FiO2 09/05/24 13:00 97.4 58 18 116/64 (81) 97 97.4 09/05/24 07:30 Room Air* 0 21 Intake/Output Intake and Output 09/05/24 07:00 Intake Total 1740 ml Balance 1740 ml Intake Oral 1280 ml IV Total 460 ml # Voids 9 # Bowel Movements 1 Medications Current Medications Medications Dose Ordered Sig/Zana Route Start Time Stop Time Status Last Admin Dose Admin Morphine Sulfate 2 mg Q30M PRN IV 09/03/24 13:30 Aspirin 81 mg DAILY PO 09/04/24 10:00 09/05/24 10:11 81 MG Atorvastatin Calcium 80 mg HS PO 09/03/24 22:00 09/04/24 21:22 80 MG Hydralazine HCl 10 mg Q6HP PRN IV 09/03/24 13:30 09/03/24 16:38 10 MG Acetaminophen 325 mg Q4HP PRN PO 09/03/24 13:45 09/03/24 16:37 325 MG Levothyroxine Sodium 100 mcg QAM@0600 PO 09/04/24 06:00 09/05/24 05:56 100 MCG Ticagrelor 90 mg BID PO 09/03/24 22:00 09/05/24 10:11 90 MG Metoprolol Tartrate 12.5 mg BID PO 09/03/24 22:00 09/04/24 21:21 12.5 MG Sodium Chloride 1,000 ml @ 60 mls/hr [id number] IV 09/03/24 15:30 09/04/24 09:18 60 MLS/HR Enalapril Maleate 20 mg DAILY PO 09/05/24 10:00 09/05/24 09:53 20 MG Laboratory Results Laboratory Tests 09/04/24 05:10 Assessment/Plan Assessment/Plan 69-year-old female with a known history of hypothyroidism, osteoporosis, chronic tobacco use disorder presented to the hospital with bilateral upper extremity numbness pain as well as jaw pain found to have 1. STEMI status post left heart catheterization with a PCI to mid RCA with two stents 2. LAD lesion need PCI to diagonal. 3. Hypothyroidism 4. Osteoporosis 5. Chronic tobacco use disorder -aspirin, Brilinta, statin, beta sergio -follow up Cardiology recommendations. -staged PCI to LAD today. Plan discussed with: Patient Date of Service: September 05, 2024 Billing Provider: MIYA ARELLANO MD Common Visit Codes: NOT BILLABLE MIYA ARELLANO MD September 05, 2024 16:14
[2024-09-05] MEDS: ASPirin 81 mg TAB ONE (18:27)
[2024-09-05] MEDS: TICAGRELOR 90 MG TAB ONE (18:27)
--- NOTE | 2024-09-05 18:28 | DVHOP2 ---
Operative Report Procedures performed: PCI (drug-eluting stent deployment/inflated to 2.75 in size) of mid LAD Ultrasound guidance access (right femoral artery) Moderate sedation Diagnosis: Known mid LAD lesion, status post PCI (drug-eluting stent deployment) Cardiac suggestion for management: Dual antiplatelet therapy (patient was previously loaded/started on aspirin/Brilinta) for at least 1 year Continuation of beta blockers/high potency statins/JESU inhibitor Lifestyle and risk factor modifications Medical management of diagonal disease. Patient originally presented 2 days prior to this procedure with STEMI (inferior wall, RCA disease). At that point, PCI/drug-eluting stent deployment of RCA was performed successfully. At that point, we also recognized disease in LAD (90%) and diagonal. The disease in LAD/diagonal was to be managed in a separate setting. At this point, the patient was brought for staged PCI of LAD lesion. Procedure: After obtaining informed consent, the patient was brought to the cath laboratory technician. She was prepped and draped in sterile fashion. 1 mg of Versed and 25 mcg of fentanyl were used for moderate sedation. Right femoral artery was used for access. Using ultrasound for guidance and micropuncture, the right femoral artery was accessed. After angiographically proving a good access point, the micropuncture sheath was exchanged over the wire to a 6 Ukrainian femoral sheath. A 6 Ukrainian EBU guiding catheter was used to access the left coronary system. Patient was started on Angiomax. Ney wire was used to cross the lesion of the LAD. A separate Ney wire was used to protect the diagonal (was kept into diagonal artery). We did use a 2.5 x 12 compliant balloon for predilatation. We proceeded to deploy a stent (2.5 x 30 drug-eluting stent) across the lesion in mid LAD (inflated to 18 atmosphere, practically make it 2.75 in size). Repeat angiography revealed a well deployed stent with 0% remaining lesion in LAD. DEBRA flow prior to intervention was DEBRA 3 flow in LAD/diagonal. Post intervention DEBRA flow in LAD/diagonal remained DEBRA 3 flow. As the diagonal was judged to be small in size, decision was made to manage it medically. Right femoral artery access site was managed by deploying an Angio- Seal device. There was no dissection/hematoma/perforation. Patient tolerated the procedure with no complication. Fluoroscopy time: 7.3 minutes contrast: 70 mL of COSMO Kinney MD September 05, 2024 18:28
[2024-09-06] VITALS (7 sets, daily range): BP systolic 92–108; BP diastolic 43–63; PULSE 54–72; RESP 18; TEMP 37; O2SAT 95–99
--- NOTE | 2024-09-06 09:47 | ECG ---
[facility] Test Date: 2024-09-03 Test Time: 12:22:42 Pat Name: JOHN HANKINS Department: ED Room: 0247T A Gender: F Ski Patroller: LAURA : 1955 Requested By: TANG BATISTA Order Number: [id number] Reading MD: Alon Patel Measurements Intervals [place] Rate: 61 P: 74 [place]: 166 QRS: 84 QRSD: 157 T: 99 QT: 477 QTc: 481 Interpretive Statements Sinus rhythm Probable left atrial enlargement Right bundle branch block Inferior infarct, acute Baseline wander in lead(s) II Electronically Signed On 09-09-2024 21:45:46 PDT by Alon Patel Please click the below link to view image of tracing.
[2024-09-06] MEDS ORDERED: ASPI-325 PO (13:06)
[2024-09-06] MEDS ORDERED: ENAL1TAB47 PO (13:06)
[2024-09-06] MEDS ORDERED: ATOR-47 PO (13:06)
[2024-09-06] MEDS ORDERED: METO25TA93 PO (13:06)
[2024-09-06] MEDS ORDERED: TICA90TA PO (13:06)
--- NOTE | 2024-09-06 13:07 | DVHDS2 ---
Discharge Summary Date of Admission September 03, 2024 at 13:44 Date of Discharge: September 06, 2024 Labs/Diagnostic Data: Laboratory Results Test 09/04/24 05:10 09/03/24 12:32 White Blood Count 8.3 10^3/uL (4.4-10.8) Red Blood Count 4.12 10^6/uL (4.0-5.20) Hemoglobin 12.7 g/dL (12.2-16.2) Hematocrit 37.5 % (36.0-46.0) Mean Corpuscular Volume 91.1 fL (80.0-100.0) Mean Corpuscular Hemoglobin 30.9 pg (28.0-32.0) Mean Corpuscular Hemoglobin Concent 33.9 g/dL (32.0-36.0) Red Cell Distribution Width 13.9 % (11.8-14.3) Platelet Count 187 10^3/uL (140-450) Mean Platelet Volume 9.2 fL (6.9-10.8) Neutrophils (%) (Auto) 78.5 % (37.0-80.0) Lymphocytes (%) (Auto) 11.3 % (10.0-50.0) Monocytes (%) (Auto) 8.5 % (0.0-12.0) Eosinophils (%) (Auto) 1.2 % (0.0-7.0) Basophils (%) (Auto) 0.5 % (0.0-2.0) Neutrophils # (Auto) 6.5 10 ^3/uL (1.6-8.6) Lymphocytes # (Auto) 0.9 10 ^3/uL (0.4-5.4) Monocytes # (Auto) 0.7 10 ^3/uL (0-1.3) Eosinophils # (Auto) 0.1 10 ^3/uL (0-0.8) Basophils # (Auto) 0 10 ^3/uL (0-0.2) Nucleated Red Blood Cells 0.1 % Sodium Level 139 mmol/L (136-145) Potassium Level 3.9 mmol/L (3.5-5.1) Chloride Level 110 mmol/L (98-107) Carbon Dioxide Level 19 mmol/L (20-31) Anion Gap 10 (5-15) Blood Urea Nitrogen 11 mg/dL (9-23) Creatinine 0.70 mg/dL (0.550-1.02) Glomerular Filtration Rate Calc 92 mL/min (>90) BUN/Creatinine Ratio 15.7 (10.0-20.0) Serum Glucose 92 mg/dL (74-106) Calcium Level 8.7 mg/dL (8.7-10.4) Total Bilirubin 0.5 mg/dL (0.2-1.0) Aspartate Amino Transferase (AST) 30 U/L (13-40) Alanine Aminotransferase (ALT) 18 U/L (7-40) Alkaline Phosphatase 51 U/L (46-116) Troponin I High Sensitivity 2280 ng/L (</=34) Total Protein 6.4 g/dL (5.7-8.2) Albumin 4.0 g/dL (3.2-4.8) Prothrombin Time 10.2 sec (9.3-11.8) Prothrombin Time INR 0.96 (0.9-1.15) Activated Partial Thromboplast Time 24.2 SEC (24.5-34.5) Hemoglobin A1c 5.2 % A1C (<5.7) Magnesium Level 2.4 mg/dL (1.6-2.6) B-Type Natriuretic Peptide 11.04 pg/mL (0-100) Triglycerides Level 135 mg/dL (< 150) Cholesterol Level 214 mg/dL (< 200) LDL Cholesterol 137 mg/dL (< 100) HDL Cholesterol 59 mg/dL (40-59) Thyroid Stimulating Hormone (TSH) 7.19 uIU/mL (0.55-4.78) Other Laboratory Tests 09/04/24 05:10 Brief Hx & Hospital Course: 69-year-old female with a known history of hypothyroidism, osteoporosis, chronic tobacco use disorder presented to the hospital with bilateral upper extremity numbness pain as well as jaw pain found to have ST-elevation MT. Patient underwent left heart catheterization which shows evidence of RCA and LAD lesion. Patient has had a staged procedure in which PCI to mid RCA with two stents were done. At a later date LAD lesion with a PCI to diagonal was done. Patient is currently stable to be discharged. Patient was on aspirin and Brilinta in the hospital. Insurance will not approve Brilinta but they approve Plavix. Patient's Brilinta will be changed to Plavix. Condition at Discharge: Stable Final Diagnosis/Problems List 69-year-old female with a known history of hypothyroidism, osteoporosis, chronic tobacco use disorder presented to the hospital with bilateral upper extremity numbness pain as well as jaw pain found to have 1. STEMI status post left heart catheterization with a PCI to mid RCA with two stents 2. LAD lesion need PCI to diagonal. 3. Hypothyroidism 4. Osteoporosis 5. Chronic tobacco use disorder Discharge Disposition: Home with [facility] Services SNF Discharge Will this Physician continue t: No Discharge Instruct/Medications Diet: Cardiac 2g Na,low cholest Activity: No Restrictions, As Tolerated Follow Up/Referral: Please follow up with the PCP in 1-2 weeks Follow up with Dr. Patel, money position officer in one week. Medications: Aspirin, Plavix, statin as prescribed Beta sergio and JESU inhibitor. Discharge Statement: "Patient was advised to return to the ER or call 911 if any headaches, dizziness, shortness of breath, chest pain, abdominal pain, bleeding, fevers, or worsening of medical condition. Patient was counseled about treatment plan, medications, possible side effects, patientverbalized understanding. All questions were answered to the best of my ability. This discharge took greater then 30 minutes in planning, reviewing documentation, counseling the patient, and discussing with other team members." ASSESSMENT ASSESSMENT Assessment 69-year-old female with a known history of hypothyroidism, osteoporosis, chronic tobacco use disorder presented to the hospital with bilateral upper extremity numbness pain as well as jaw pain found to have 1. STEMI status post left heart catheterization with a PCI to mid RCA with two stents 2. LAD lesion need PCI to diagonal. 3. Hypothyroidism 4. Osteoporosis 5. Chronic tobacco use disorder Date of Service: September 06, 2024 Billing Provider: MIYA ARELLANO MD Common Visit Codes: NOT BILLABLE MIYA ARELLANO MD September 06, 2024 13:07
[2024-09-06] MEDS ORDERED: CLOP75TA28 PO (13:14)
== END 2024-09-06 16:55 | disposition home or self-care (01) | DRG 321 ==
LOC: EDBD 12:19 → ER 12:27 → OVERFLOW 13:44 → TELE-EAST 16:13
PROVIDERS: ATTEND Internal Medicine
PROC: 027035Z Dilation of Coronary Artery, One Artery with Two Drug-eluting Intraluminal Devices, Percutaneous Approach (ICD-10-PCS; principal; 2024-09-03)
PROC: 4A023N7 Measurement of Cardiac Sampling and Pressure, Left Heart, Percutaneous Approach (ICD-10-PCS; 2024-09-03)
PROC: B211YZZ Fluoroscopy of Multiple Coronary Arteries using Other Contrast (ICD-10-PCS; 2024-09-03)
PROC: B215YZZ Fluoroscopy of Left Heart using Other Contrast (ICD-10-PCS; 2024-09-03)
PROC: 027034Z Dilation of Coronary Artery, One Artery with Drug-eluting Intraluminal Device, Percutaneous Approach (ICD-10-PCS; 2024-09-05)
PROC: B211YZZ Fluoroscopy of Multiple Coronary Arteries using Other Contrast (ICD-10-PCS; 2024-09-05)
PROC: B41FYZZ Fluoroscopy of Right Lower Extremity Arteries using Other Contrast (ICD-10-PCS; 2024-09-05)
DX: I21.19 ST elevation (STEMI) myocardial infarction involving other coronary artery of inferior wall (principal); I50.31 Acute diastolic (congestive) heart failure; I25.10 Atherosclerotic heart disease of native coronary artery without angina pectoris; E03.9 Hypothyroidism, unspecified; M81.0 Age-related osteoporosis without current pathological fracture; F17.200 Nicotine dependence, unspecified, uncomplicated; Z90.710 Acquired absence of both cervix and uterus; Z82.49 Family history of ischemic heart disease and other diseases of the circulatory system; Z79.899 Other long term (current) drug therapy; Z71.6 Tobacco abuse counseling
CPT/HCPCS: 36415; 71045; 80053; 80061; 83036; 83735; 83880; 84443; 84484; 85025; 85610; 85730; 86850; 86900; 86901; 92941; 93005; 93306; 93454; 93458; 99152; 99291; 99292; C1874; C1887; C1894; G0378; J2250; Q9967